=== PATIENT | male | born 1990 | race Caucasian/White ===

== ENCOUNTER 2018-12-15 19:20 | Emergency (ER) | payer MEDICAID ==
[~2018-12-15] VITALS: Ht 165.1 cm; Wt 75.7 kg
[2018-12-15 19:28] VITALS: BP_SYST 127
[2018-12-15] MEDS ORDERED: DIPH-TET-PERTUS Vaccine 0.5 ML VIAL (ADACEL) I.M. ONE (20:00)
[2018-12-15 20:53] VITALS: BP_SYST 122
== END 2018-12-15 20:53 | disposition home or self-care (01) ==
LOC: SED 19:20
DX: L03.012 Cellulitis of left finger (principal); F17.210 Nicotine dependence, cigarettes, uncomplicated; R03.0 Elevated blood-pressure reading, without diagnosis of hypertension; Z71.6 Tobacco abuse counseling
CPT/HCPCS: 90715; 99283

== ENCOUNTER 2019-07-31 23:22 | Emergency (ER) | payer MEDICAID ==
[~2019-07-31] VITALS: Ht 162.6 cm; Wt 79.8 kg
[2019-08-01 00:15] VITALS: BP_SYST 113
--- NOTE | 2019-08-01 00:20 | NUR ---
Pt placed to ER waiting room in stable condition.
--- NOTE | 2019-08-01 03:17 | NUR ---
Patient to ER bed 04 to gown for evaluation. Side rails up. Report given to KATYA Pan
--- NOTE | 2019-08-01 03:30 | NUR ---
Dr. Olivier bedside for Pt eval
--- NOTE | 2019-08-01 03:30 | NUR ---
Gilberto faustin in ED - 08/01/[address] Olivier at bedside.
--- NOTE | 2019-08-01 03:35 | NUR ---
Pt BIB family to ED C/O while lifting weights doing bench press one month ago when patient injured his left shoulder patient has had constant pain since that time constant nothing makes better moderate in severity no radiation no fevers. Patient is not seen a medical provider for evaluation prior to today. No other injuries and or complaints noted VSS no s/s of acute distress Resting on gurney rails up
--- NOTE | 2019-08-01 04:20 | NUR ---
Dr. Olivier bedside for Pt update
[2019-08-01 04:38] VITALS: BP_SYST 124
--- NOTE | 2019-08-01 04:38 | NUR ---
Patient given written and verbal discharge instructions and verbalizes understanding. ER MD discussed with patient the results and treatment provided. Patient in stable condition. ID arm band removed. Rx of Zofran, Medrol dose pack, [place] given. Patient educated on pain management and to follow up with PMD. Pain Scale 2/10. Opportunity for questions provided and answered. Medication side effect fact sheet provided.
== END 2019-08-01 04:38 | disposition home or self-care (01) ==
LOC: SED 23:22
DX: S43.402A Unspecified sprain of left shoulder joint, initial encounter (principal); X50.0XXA Overexertion from strenuous movement or load, initial encounter; Y93.89 Activity, other specified; Y92.89 Other specified places as the place of occurrence of the external cause; Y99.8 Other external cause status
CPT/HCPCS: 73020; 99283; J7030

== ENCOUNTER 2020-12-12 22:50 | Emergency (ER) | payer MEDICAID ==
[~2020-12-12] VITALS: Ht 162.6 cm; Wt 79.4 kg
[2020-12-12 22:56] VITALS: BP_SYST 134
[2020-12-12 23:32] VITALS: BP_SYST 134
== END 2020-12-12 23:32 | disposition home or self-care (01) ==
LOC: SED 22:50
DX: S90.32XA Contusion of left foot, initial encounter (principal); W23.0XXA Caught, crushed, jammed, or pinched between moving objects, initial encounter; Y93.89 Activity, other specified; Y92.89 Other specified places as the place of occurrence of the external cause; Y99.8 Other external cause status
CPT/HCPCS: 99283

== ENCOUNTER 2023-01-22 00:31 | Emergency (ER) | payer MEDICAID ==
[~2023-01-22] VITALS: Ht 162.6 cm; Wt 81.6 kg
[2023-01-22 00:54] VITALS: BP_SYST 117
[2023-01-22] MEDS ORDERED: DIPHTH,PERTUSS(ACELL),TET VAC 0.5 ML VIAL (Tdap) I.M. ONE (05:00)
[2023-01-22] MEDS ORDERED: LIDOCAINE 1% 10 MG/ML, 20 ML MDV INJ ONE (05:00)
[2023-01-22 06:19] VITALS: BP_SYST 115
== END 2023-01-22 06:16 | disposition home or self-care (01) ==
LOC: SED 00:31
DX: S01.112A Laceration without foreign body of left eyelid and periocular area, initial encounter (principal); S01.81XA Laceration without foreign body of other part of head, initial encounter; Z79.899 Other long term (current) drug therapy; W22.8XXA Striking against or struck by other objects, initial encounter; Y93.02 Activity, running; Y92.89 Other specified places as the place of occurrence of the external cause; Y99.8 Other external cause status
CPT/HCPCS: 99282; 12013; J2001

== ENCOUNTER 2023-02-09 22:00 | Emergency (ER) | payer MEDICAID ==
[~2023-02-09] VITALS: Ht 162.6 cm; Wt 81.6 kg
[2023-02-09 22:04] VITALS: BP_SYST 125
[2023-02-09] MEDS ORDERED: DIPHTH,PERTUSS(ACELL),TET VAC 0.5 ML VIAL (Tdap) I.M. ONE (22:15)
[2023-02-09] MEDS ORDERED: OXYCODONE/ACETAMINOPHEN 5-325 TABLET PO ONE (22:15)
[2023-02-09] MEDS ORDERED: ceFAZolin SODIUM 2 GM VIAL IM ONE (22:45)
[2023-02-09] MEDS ORDERED: ceFAZolin SODIUM 2 GM VIAL ONE (22:57)
[2023-02-10] MEDS ORDERED: IBUP-1969 PO (00:01)
[2023-02-10] MEDS ORDERED: CEPH-548 PO (00:01)
[2023-02-10] MEDS ORDERED: OXYC-128 PO (00:01)
== END 2023-02-10 00:23 | disposition home or self-care (01) ==
LOC: SED 22:00
DX: S62.344A Nondisplaced fracture of base of fourth metacarpal bone, right hand, initial encounter for closed fracture (principal); S61.431A Puncture wound without foreign body of right hand, initial encounter; Z79.899 Other long term (current) drug therapy; W34.00XA Accidental discharge from unspecified firearms or gun, initial encounter; Y93.89 Activity, other specified; Y92.89 Other specified places as the place of occurrence of the external cause; Y99.8 Other external cause status
CPT/HCPCS: 90715; 96372; 99284